=== PATIENT | female | born 1975 | race Caucasian/White ===

== ENCOUNTER 2016-12-26 00:30 | Emergency (ER) | payer MEDICAID, OTHER, SELFPAY ==
[~2016-12-26] VITALS: Ht 175.3 cm; Wt 78.8 kg
[2016-12-26 01:33] LABS: BLOOD UREA NITROGEN 14 mg/dL (7-18)
[2016-12-26 01:39] LABS: ASPARTATE AMINO TRANSFERASE 15 U/L (15-37)
[2016-12-26 03:26] VITALS: BP 126/81
== END 2016-12-26 03:30 | disposition home or self-care (01) ==
LOC: ED 00:56
DX: N30.00 Acute cystitis without hematuria (principal); K59.00 Constipation, unspecified
CPT/HCPCS: 36415; 74020; 80053; 81001; 83690; 84703; 85025; 87077; 87086; 87186; 99285